=== PATIENT | female | born 1980 | race Asian ===

== ENCOUNTER 2024-08-15 20:44 | Emergency (ER) | payer OTHER ==
[~2024-08-15] VITALS: Ht 162.6 cm; Wt 68.0 kg
[2024-08-15 20:56] VITALS: BP 166/101; TEMP 98.5; O2SAT 98
[2024-08-15] MEDS ORDERED: OFLO5DRO LEFTEYE (21:11)
[2024-08-16 15:04] LABS: HIV-1 p24 ANTIGEN NON REACTIVE (NONREACTIVE); HIV-1/2 ANTIBODY NON REACTIVE (NONREACTIVE)
[2024-08-17 08:07] LABS: HEPATITIS B SURFACE AB (QUAL) Reactive (.)
== END 2024-08-16 01:14 | disposition home or self-care (01) ==
LOC: ER 21:02
DX: Z77.21 Contact with and (suspected) exposure to potentially hazardous body fluids (principal)
CPT/HCPCS: 36415; 86706; 86803; 87340; 87806